=== PATIENT | male | born 1970 ===

== ENCOUNTER 2025-01-24 08:19 | Outpatient (AMB) | payer OTHER, SELFPAY | END 2025-01-24 08:26 | disposition home or self-care (01) | LOC: HO.HMGAL 08:19 | PROVIDERS: Visit Provider Registered Nurse Emergency | DX: J30.89 Other allergic rhinitis (principal) | CPT/HCPCS: 95117; 95165 ==

== ENCOUNTER 2025-02-14 08:09 | Outpatient (AMB) | payer OTHER, SELFPAY | END 2025-02-14 08:13 | disposition home or self-care (01) | LOC: HO.HMGAL 08:09 | PROVIDERS: PCP Internal Medicine; Visit Provider Registered Nurse Emergency | DX: J30.89 Other allergic rhinitis (principal) | CPT/HCPCS: 95117; 95165 ==

== ENCOUNTER 2025-03-14 08:21 | Outpatient (AMB) | payer OTHER, SELFPAY | END 2025-03-14 08:22 | disposition home or self-care (01) | LOC: HO.HMGAL 08:21 | PROVIDERS: PCP Internal Medicine; Visit Provider Registered Nurse Emergency | DX: J30.89 Other allergic rhinitis (principal) | CPT/HCPCS: 95117; 95165 ==

== ENCOUNTER 2025-03-28 08:33 | Outpatient (AMB) | payer OTHER, SELFPAY | END 2025-03-28 08:34 | disposition home or self-care (01) | LOC: HO.HMGAL 08:33 | PROVIDERS: PCP Internal Medicine; Visit Provider Registered Nurse Emergency | DX: J30.89 Other allergic rhinitis (principal) | CPT/HCPCS: 95117; 95165 ==

== ENCOUNTER 2025-04-18 16:02 | Outpatient (AMB) | payer OTHER, SELFPAY | END 2025-04-18 16:02 | disposition home or self-care (01) | LOC: HO.HMGAL 16:02 | PROVIDERS: PCP Internal Medicine; Visit Provider Registered Nurse Emergency | DX: J30.89 Other allergic rhinitis (principal) | CPT/HCPCS: 95117; 95165 ==

== ENCOUNTER 2025-05-09 13:34 | Outpatient (AMB) | payer OTHER, SELFPAY | END 2025-05-09 13:35 | disposition home or self-care (01) | LOC: HO.HMGAL 13:34 | PROVIDERS: PCP Internal Medicine; Visit Provider Registered Nurse Emergency | DX: J30.89 Other allergic rhinitis (principal) | CPT/HCPCS: 95117; 95165 ==